=== PATIENT | male | born 1975 | race Caucasian/White ===

== ENCOUNTER 2019-04-26 07:13 | Day surgery (SDC) | payer OTHER, SELFPAY ==
[2019-04-07 15:01] VITALS: BMI 23.6
--- NOTE | 2019-04-11 10:28 | HP_ITS ---
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 Is patient in pain?: No Allergies No Known Allergies Allergy (Unverified 04/07/19 15:03) Medications omeprazole 20 mg capsule,delayed release 20 mg PO DAILY #60 cap 04/07/19 [Rx Confirmed 04/07/19] sucralfate 1 gram tablet 1 g PO QACHS #120 tab 04/07/19 [Rx Confirmed 04/07/19] PFSH Medical History (Updated 04/11/19 @ 10:26 by Spencer Bryan MD) Abdominal pain (Acute) Black tarry stools (Acute) Nausea (Acute) Weight loss (Acute) Surgical History (Updated 04/07/19 @ 15:00 by Shilpa Vigil) History of right inguinal hernia repair (Acute) History of spinal surgery (Acute) Family History (Updated 04/07/19 @ 15:01 by Shilpa Vigil) Aunt Cancer leukemia Social History (Updated 04/11/19 @ 10:28 by Spencer Bryan MD) Smoking Status: Current every day smoker alcohol intake: current alcohol intake frequency: a few times a month substance use type: marijuana HPI HPI HPI: KEN FLANAGAN, is a 43 M who presents to the office today for HPI HPI Surgical H&P: Yes HPI: KEN FLANAGAN, is a 43 M who presents to the office today for Weight loss, lower abdominal pain, epigastric pain, black tarry stools. Patient notes that for the last month or so he has had 30 pounds of weight loss. He says that he is not having a gross blood in his stool but he is having black tarry stools. He is having lower abdominal pain as well as upper abdominal pain and heartburn. The patient does smoke cigarettes and has daily caffeine intake. He also takes ibuprofen. ROS General General: Yes weight change; no appetite, fatigue, colon cancer, breast cancer or weakness HEENT HEENT: No difficulty swallowing, eye injury, eye surgery, swollen glands or hoarseness Endo Endocrine: No thyroid disease, diabetes mellitus, thyroid cancer, Hair loss, heat intolerance or cold intolerance Skin Skin: No rash or changing moles Breast Breast: No left breast lump, right breast lump, nipple discharge, breast pain, abnormal mammogram, abnormal US or breast enlargement Musc Musculoskeletal: No back problems, arthritis, rheumatoid arthritis, gout or joint pain Cardio Cardiovascular: No murmur, pacemaker, heart disease, atrial fibrillation, high blood pressure, heart attack, heart stent, palpitations, shortness of breat with exertion or chest pain Psych Psychiatric: No depression, anxiety or hearing voices Resp Respiratory: No shortness of breath, No sleep apnea, No cough, No COPD, No asthma, No emphysema, No wheezing Gastro Gastrointestinal: Yes abdominal pain, Yes nausea or vomiting, No diarrhea, No constipation, No blood in stool, No acid reflux, No hemorrhoids, No ulcers, No gallbladder problem, Yes black,tarry stools Guanaco Hematologic: No blood thinners, No blood disorders, No bleeding, No anemia, No blood clots Neuro Neurologic: No system reviewed and no additional complaints, except as docu, No as per HPI, No abnormal walking, No abnormal hearing, No abnormal movements, No abnormal speech, No behavioral changes, No burning sensations, No confusion, No seizure-like activity, No unsteadiness, No dizziness, No localized weakness, No frequent falls, No headache(s), No lack of coordination, No loss of vision, No memory loss, Yes numbness, No other visual disturbances, No radiating pain, No restless legs, No sensory deficit, No fainting, Yes tingling, No tremor(s), No weakness, No other Exam Const General: cooperative Orientation: alert, oriented x3 Chest Breast Palpation: No nipple discharge Resp Effort & Inspection: normal respiratory effort Auscultation: clear to auscultation bilaterally Cardio Rate: regular rate Rhythm: regular rhythm Heart Sounds: no murmurs GI Inspection: non-distended Palpation: soft, nontender Assessment & Plan Problems 1. Black tarry stools K92.1 2. Weight loss R63.4 3. Epigastric pain R10.13 Plan The patient is having epigastric pain as well as black tarry stools. This is likely peptic ulcer disease. He may have not been eating due to the abdominal pain. I will also perform a colonoscopy at the same time as EGD to ensure that there is no GI malignancy. I have started the patient on a PPI and Carafate. I explained endoscopy in detail to the patient. I explained the risks including but not limited to stroke or heart attack with anesthesia, perforation of the GI tract, bleeding, infection. I explained that any of these could necessitate further emergency surgery. The patient understands and all questions were answered sufficiently. The patient wishes to proceed with procedure. Spencer Bryan MD Pager: [facility] [address] [place] [address], [address] [place] [phone] Office: Orders Orders: Colonoscopy Today R63.4 EGD Today K92.1, R10.13 Medications New: sucralfate 1 g PO QACHS 120 tabs 0RF omeprazole 20 mg PO DAILY 60 caps 1RF Coding Level of Care Code Off vis,new,level 3 Diagnoses Black tarry stools K92.1 Weight loss R63.4 Epigastric pain R10.13 04/11/19 1028 <Electronically signed by Spencer chen MD> Date _ Spencer Bryan MD I have re-examined the patient. Patient notes that with PPI and Carafate he has been having less black tarry stools and he has been eating much more. He still has occasional black tarry stools. He says the bowel prep went well. I did obtain the CT scan from the outside hospital which shows a right inguinal hernia containing bowel. I discussed that the patient should have this repaired due to risk of incarceration or strangulation of the patient will address this at a later date.
[2019-04-26 07:34] VITALS: BP 129/82; PULSE 68; RESP 16; TEMP 36.8; O2SAT 97; BMI 23.3
[2019-04-26 08:50] VITALS: BP 129/82; BP 91/54; BP 93/55; PULSE 46; PULSE 56; RESP 16; TEMP 36.3; O2SAT 100; O2SAT 99
--- NOTE | 2019-04-26 08:51 | OP.EGD_ITS ---
Patient Name: Zeb Palumbo Procedure Date: 04/26/2019 8:19 AM Date of : 1975 Age: 43 Procedure: Upper GI endoscopy Indications: Melena Providers: Spencer Bryan MD Medicines: Monitored Anesthesia Care Patient Profile: This is a 43 year old male. Refer to note in patient chart for documentation of history and physical. Complications: No immediate complications. Procedure: Pre-Anesthesia Assessment: - Prior to the procedure, a History and Physical was performed, and patient medications and allergies were reviewed. The patient's tolerance of previous anesthesia was also reviewed. The risks and benefits of the procedure and the sedation options and risks were discussed with the patient. All questions were answered, and informed consent was obtained. Prior Anticoagulants: The patient has taken no previous anticoagulant or antiplatelet agents. After reviewing the risks and benefits, the patient was deemed in satisfactory condition to undergo the procedure. After obtaining informed consent, the endoscope was passed under direct vision. Throughout the procedure, the patient's blood pressure, pulse, and oxygen saturations were monitored continuously. The gastroscope was introduced through the mouth, and advanced to the third part of duodenum. The upper GI endoscopy was accomplished without difficulty. The patient tolerated the procedure well. Scope In: 8:26:36 AM Scope Out: 8:29:33 AM Total Procedure Duration Time 0 hours 2 minutes 57 seconds Findings: The esophagus was normal. The stomach was normal. The examined duodenum was normal. Impression: - Normal esophagus. - Normal stomach. - Normal examined duodenum. - No specimens collected. Recommendation: - Discharge patient to home. - Resume previous diet. - Continue present medications. Procedure Code(s): --- Professional --- 02645, Esophagogastroduodenoscopy, flexible, transoral; diagnostic, including collection of specimen(s) by brushing or washing, when performed (separate procedure) Diagnosis Code(s): --- Professional --- K92.1, Melena (includes Hematochezia) CPT copyright 2017 [employer]. All rights reserved. The codes documented in this report are preliminary and upon bullard machine operator review may be revised to meet current compliance requirements. Spencer Bryan MD 04/26/2019 8:51:09 AM This report has been signed electronically. Number of Addenda: 0 Note Initiated On: 04/26/2019 8:19 AM
--- NOTE | 2019-04-26 08:51 | OP.CCLET_ITS ---
04/26/2019 Nicky Weldon Re : Upper GI endoscopy procedure for Zeb Weldon This procedure was performed on Friday, April 26, 2019. My impressions and recommendations are as follows: Impressions : - Normal esophagus. - Normal stomach. - Normal examined duodenum. - No specimens collected. Recommendations : - Discharge patient to home. - Resume previous diet. - Continue present medications. My findings are described in the full procedure note, which is enclosed. If I can be of further assistance, please feel free to contact me at Doctor phone number(s): , Work: . Sincerely, Spencer Bryan MD 04/26/2019 8:51:09 AM This report has been signed electronically.
--- NOTE | 2019-04-26 08:53 | OP.CCLET_ITS ---
04/26/2019 Nicky Weldon Re : Colonoscopy procedure for Zeb Weldon This procedure was performed on Friday, April 26, 2019. My impressions and recommendations are as follows: Impressions : - The entire examined colon is normal on direct and retroflexion views. - No specimens collected. Recommendations : - Discharge patient to home. - Resume previous diet. - Continue present medications. - Repeat colonoscopy in 10 years for screening purposes. - Return to my office at appointment to be scheduled. My findings are described in the full procedure note, which is enclosed. If I can be of further assistance, please feel free to contact me at Doctor phone number(s): , Work: . Sincerely, Spencer Bryan MD 04/26/2019 8:53:12 AM This report has been signed electronically.
--- NOTE | 2019-04-26 08:53 | OP.COLON_ITS ---
Patient Name: Zeb Palumbo Procedure Date: 04/26/2019 8:32 AM Date of : 1975 Age: 43 Procedure: Colonoscopy Indications: Melena, Weight loss Providers: Spencer Bryan MD Medicines: Monitored Anesthesia Care Patient Profile: This is a 43 year old male. Refer to note in patient chart for documentation of history and physical. Last Colonoscopy: none. The patient's first colonoscopy is today. Complications: No immediate complications. Procedure: Pre-Anesthesia Assessment: - Prior to the procedure, a History and Physical was performed, and patient medications and allergies were reviewed. The patient's tolerance of previous anesthesia was also reviewed. The risks and benefits of the procedure and the sedation options and risks were discussed with the patient. All questions were answered, and informed consent was obtained. Prior Anticoagulants: The patient has taken no previous anticoagulant or antiplatelet agents. After reviewing the risks and benefits, the patient was deemed in satisfactory condition to undergo the procedure. After I obtained informed consent, the scope was passed under direct vision. Throughout the procedure, the patient's blood pressure, pulse, and oxygen saturations were monitored continuously. The colonoscope was introduced through the anus and advanced to the cecum, identified by appendiceal orifice and ileocecal valve. The colonoscopy was performed without difficulty. The patient tolerated the procedure well. The quality of the bowel preparation was good. Scope In: 8:32:49 AM Scope Withdrawal Time 0 hours 6 minutes 8 seconds Scope Out: 8:44:17 AM Total Procedure Duration Time 0 hours 11 minutes 28 seconds Findings: The entire examined colon appeared normal on direct and retroflexion views. Impression: - The entire examined colon is normal on direct and retroflexion views. - No specimens collected. Recommendation: - Discharge patient to home. - Resume previous diet. - Continue present medications. - Repeat colonoscopy in 10 years for screening purposes. - Return to my office at appointment to be scheduled. Procedure Code(s): --- Professional --- 14750, Colonoscopy, flexible; diagnostic, including collection of specimen(s) by brushing or washing, when performed (separate procedure) Diagnosis Code(s): --- Professional --- K92.1, Melena (includes Hematochezia) R63.4, Abnormal weight loss CPT copyright 2017 [employer]. All rights reserved. The codes documented in this report are preliminary and upon levelman review may be revised to meet current compliance requirements. Spencer Bryan MD 04/26/2019 8:53:12 AM This report has been signed electronically. Number of Addenda: 0 Note Initiated On: 04/26/2019 8:32 AM
[2019-04-26 09:01] VITALS: BP 105/71; BP 129/82; PULSE 68; RESP 16; O2SAT 100
[2019-04-26 09:05] VITALS: BP 105/69; BP 129/82; PULSE 40; RESP 16; O2SAT 100
[2019-04-26 09:10] VITALS: BP 112/77; BP 129/82; PULSE 446; RESP 16; TEMP 36.3; O2SAT 100
[2019-04-26 09:36] VITALS: BP 129/82
== END 2019-04-26 09:52 | disposition home or self-care (01) ==
LOC: EN 07:16 → AC 07:18
PROVIDERS: PCP Physician Assistant; Referring Provider Physician Assistant; Visit Provider Surgery
PROC: 0DJD8ZZ Inspection of Lower Intestinal Tract, Via Natural or Artificial Opening Endoscopic (ICD-10-PCS; CPT 45378; principal; 2019-04-26 08:25)
DX: K92.1 Melena (principal); R63.4 Abnormal weight loss; F17.210 Nicotine dependence, cigarettes, uncomplicated; F12.90 Cannabis use, unspecified, uncomplicated; Z79.899 Other long term (current) drug therapy
CPT/HCPCS: 43235; 45378; J7120; J2405

== ENCOUNTER 2021-06-27 06:31 | Day surgery (SDC) | payer OTHER, SELFPAY ==
[2021-06-27] VITALS (9 sets, daily range): BP systolic 112–156; BP diastolic 69–96; PULSE 49–86; RESP 14–18; TEMP 36.1–37; O2SAT 97–100; BMI 22.7
--- NOTE | 2021-06-27 06:52 | EKG12_ITS ---
Test Reason : PREOP Blood Pressure : / mmHG Vent. Rate : 053 BPM Atrial Rate : 053 BPM P-R Int : 124 ms QRS Dur : 090 ms QT Int : 418 ms P-R-T Axes : 087 062 071 degrees QTc Int : 392 ms Sinus bradycardia with sinus arrhythmia Septal infarct , age undetermined Abnormal ECG No previous ECGs available Confirmed by ELISHA AKERS, LUZ MARINA ([id number]), script editor FAISAL LIVINGSTON ([id number]) on 07/01/2021 2:07:34 PM Referred By: Spencer Bryan Confirmed By:NAKUL TELLO MD
--- NOTE | 2021-06-27 06:56 | PCM.HP.BLA ---
History and Physical Date of Admission: 06/27/21 Intake Vital Signs 05/17/21 09:51 Height 5 ft 11 in Weight: 164 lb BMI 22.8 BP 119/84 H Blood Pressure Location Rt brachial Position Sitting Respiration 18 Pulse 67 Pulse Source Monitor Temp 97.5 F L Temp Source Temporal Pulse Oximetry (%) 100 Oxygen Delivery Method room air Intake Visit Reasons: HERNIA Chief Complaint: Left Inguinal Hernia Chronic Disease Manager Required: No Is patient in pain?: No Allergies No Known Allergies Allergy (Verified 05/17/21 09:52) Medications NK 05/17/21 [History Confirmed 05/17/21] [facility] Medical History Abdominal pain Black tarry stools Left inguinal hernia Nausea Weight loss Surgical History History of colonoscopy (~04/2019) History of esophagogastroduodenoscopy (EGD) (~04/2019) History of right inguinal hernia repair History of spinal surgery Family History Aunt Cancer leukemia Social History (Updated 05/17/21 @ 09:50 by Shilpa Vigil) Smoking Status: Current every day smoker alcohol intake: current alcohol intake frequency: a few times a month HPI HPI HPI: KEN FLANAGAN, is a 45 M who presents to the office today for left inguinal hernia. Patient has had left inguinal hernia for years and put off repairing it due to Covid. Patient has had a right inguinal hernia repair in the past. Patient reports discomfort in the left groin with bulging. ROS General General: Yes weight change; No appetite, fatigue, colon cancer, breast cancer or weakness HEENT HEENT: No difficulty swallowing, eye injury, eye surgery, swollen glands or hoarseness Endo Endocrine: No thyroid disease, diabetes mellitus, thyroid cancer, Hair loss, heat intolerance or cold intolerance Skin Skin: No rash or changing moles Breast Breast: Yes left breast lump; No right breast lump, nipple discharge, breast pain, abnormal mammogram, abnormal US or breast enlargement Musc Musculoskeletal: No back problems, arthritis, rheumatoid arthritis, gout or joint pain Cardio Cardiovascular: No murmur, pacemaker, heart disease, atrial fibrillation, high blood pressure, heart attack, heart stent, palpitations, shortness of breat with exertion or chest pain Psych Psychiatric: No depression, anxiety or hearing voices Resp Respiratory: No shortness of breath, No sleep apnea, No cough, No COPD, No asthma, No emphysema and No wheezing Gastro Gastrointestinal: No abdominal pain, Yes nausea or vomiting, No diarrhea, No constipation, No blood in stool, Yes acid reflux, No hemorrhoids, No ulcers, No gallbladder problem and No black,tarry stools Guanaco Hematologic: No blood thinners, No blood disorders, No bleeding, No anemia and No blood clots Neuro Neurologic: No system reviewed and no additional complaints, except as documented, No as per HPI, No abnormal gait, No abnormal hearing, No abnormal movements, No abnormal speech, No behavioral changes, No burning sensations, No confusion, No convulsions, No disequilibrium, No dizziness, No localized weakness, No frequent falls, No headache(s), No lack of coordination, No loss of vision, No memory loss, Yes numbness, No other visual disturbances, No radicular pain, No restless legs, No sensory deficit, No syncope, Yes tingling, No tremor(s), No weakness and No other Exam Const General: cooperative Orientation: alert and oriented x3 HENMT Head: normal to inspection Neck Neck: normal visual inspection and full ROM Chest Chest palpation & inspection: normal inspection of the chest Resp Effort & Inspection: normal respiratory effort Auscultation: clear to auscultation bilaterally Cardio Rate: regular rate Rhythm: regular rhythm GI Inspection: non-distended Palpation: soft, hernia indirect inguinal on the left and nontender Skin General: no rashes or lesions noted Neuro General: patient alert and patient oriented x3 Extrem General: full ROM Psych Appearance: grossly normal Mental Status: mental status grossly normal Assessment and Plan Assessment and Plan (1) Left inguinal hernia: Status: Acute Plan - Dr. Spencer Bryan MD: Patient is a left inguinal hernia he would like repaired. The patient has a history of open right inguinal hernia repair in the past. I discussed robotic assisted laparoscopic inguinal hernia repair with mesh with the patient. I discussed the procedure in detail as well as the risks including but not limited to bleeding, infection, injury to bowel or bladder or underlying organs such as the spermatic cord or blood vessels. I explained mesh placement as well as possible complications. I explained the chance of chronic groin pain. We also talked about repairing the contralateral side if a hernia is present on the right. Patient would like this repaired if it is present. Patient understands all the risks and is willing to proceed. Spencer Bryan MD Pager: [facility] [address] [place] [address] [address] [place] [phone] Office: I have re-examined the patient. There are no clinical changes since date of exam.
[2021-06-27] MEDS: Lactated Ringers 1,000 ML 15 ML IV ×2 (07:06→09:00)
[2021-06-27 07:12] LABS: Hematocrit 42.7 % (40-54); Hemoglobin 14.5 g/dL (13.0-16.5); Mean Corpuscular Hgb 31.8 pg (27.0-32.0); Mean Corpuscular Volume 93.6 fL (80-94); Platelet Count 226 K/mm3 (150-450); RBC Distribution Width CV 12.2 % (11.6-14.6); RBC Distribution Width SD 42.5 fl (35.1-43.9); Red Blood Count 4.56 M/mm3 (4.6-6.2); White Blood Count 6.6 K/mm3 (4.4-11.0)
[2021-06-27] MEDS: Cefazolin 2 GM in 0.9% Normal Saline 100 ML IV (07:53)
--- NOTE | 2021-06-27 08:00 | LIP_PTH ---
PATIENT: KEN FLANAGAN Jr. LOC: [facility] U#:[id number] AGE/SX: 45/M ROOM: RE06/27/[address]: Dr. Spencer Bryan MD : 1975 BED: DIS: 06/27/2021 SPEC #: [id number] RECD: 06/27/21 10:04 STATUS: AMBER REHarish #: [id number] LUKASZ: 06/27/21 08:[address]: Spencer Bryan DEPT: SURGICAL PATHOLOGY RECD BY: Lanette Woodward ENTERED: 06/27/21 12:41 SP TYPE: LIPOMA OTHR DR: JENNY Cervantes Tissues: Soft tissues, NOS Procedures: Surgery Specimen Level III HEADER OPERATION: Lap robotic inguinal hernia PRE-OP DIAGNOSIS: Left inguinal hernia TISSUE SUBMITTED: Lipoma MICROSCOPIC DIAGNOSIS Lipoma, biopsy: Mature adipose tissue, consistent with lipoma. DAYSI:ang 06/28/2021 MICROSCOPIC DESCRIPTION Slides are reviewed. GROSS DESCRIPTION Received in fixative is one container labeled with the patient's name and designated lipoma. The specimen consists of two pieces of yellow adipose tissue measuring in aggregate 4 x 3.5 x 0.5 cm. Sections reveal yellow adipose cut surfaces without area of hemorrhage, necrosis or cystic degeneration. Concrete Engineer sections are submitted in one cassette. / SJ:rg 06/27/2021 TC:1 CPT: 72577
[2021-06-27] MEDS: Bupivacaine 0.5% PF 10 ML VIAL (09:35)
--- NOTE | 2021-06-27 09:47 | OP.PCM_ITS ---
Problems Associated Problem List Diagnoses (1) Left inguinal hernia: Report of Operation Date of Procedure: 06/27/21 Pre-Operative Diagnosis: Left inguinal hernia Post-Operative Diagnosis: Left inguinal hernia Surgery/Procedure Performed:: Robotic assisted laparoscopic left inguinal hernia repair with mesh Specimen's removed: Lipoma of left cord Description of Procedure: Patient was brought the operating room and general anesthesia was used. The abdomen was prepped and draped in usual sterile fashion. A midline incision was made superior to the umbilicus and deepened to the fascia which was elevated and a Veress needle was placed into the abdomen. A drop test was performed. The abdomen was then insufflated to 15 mmHg and the Veress needle was removed and a port was placed into the abdomen. Camera was placed in the abdomen there were no injuries from entry. Patient was placed in Trendelenburg position and under direct visualization a right lateral 8 mm port was placed as well as a left lateral 8 mm port. Robot was docked. Incision was made in the peritoneum using electrocautery scissors and then the peritoneum was dissected inferiorly until the hernia sac was encountered. It was a sliding hernia containing colon. This was reduced along with the hernia sac and the dissection was carried inferiorly. Lipoma was dissected free from the left cord and removed as well. Next a ProGrip mesh was placed in the left groin and unfolded completely covering the hernia defect. The mesh was reapproximated using a running 3 OV lock suture but during the peritoneal reapproximation there appeared to be some bleeding from possible epigastric. A [id number] 0 Vicryl suture was used to stop this bleeding and then the peritoneum was cont inued to be closed. There was a defect in the peritoneum where the hernia sac was incised and this was closed with a [id number] 3-0 Vicryl suture. There appeared to be good hemostasis by the end of the case. The robot was undocked and the ports were removed. The incisions were injected with local anesthetic and closed with interrupted 4-0 Monocryl suture. Steri-Strips and bandages were applied. Patient was awoken and taken to PACU in stable condition. Grafts/Implants Used: ProGrip mesh in the left groin Admit VTE Documentation VTE Mechan Device Prophylaxis: SCD's
--- NOTE | 2021-06-27 09:54 | EX.PCM.DISCH ---
Discharge Instructions Procedure Hernia Diet Discharge Diet: Light diet - advance as tolerated Activity Discharge Activity: May Not Drive (for 2-3 days or while taking narcotic pain meds.) and May Shower (with the bandage in place 1-2 days after surgery.) Lifting Restrictions: 20 pounds for 6 weeks. Additional Activity Instructions:: Climbing stairs is fine, walking is encouraged. Sitting in bed may be uncomfortable. Sitting up using your lateral muscles (sitting up sideways) is usually more comfortable. Do not drive, work heavy equipment of sign legal documents for 24 hours. If your hernia repair was an ingunial repair, you may have scrotal swelling, an ice pack and/or athletic support can provide more comfort. Pain medications may cause nausea, you should typically eat light foods as you take your pain medications. Pain medications may also cause constipation. If you have difficulty with this, discuss with your doctor. Dressing / Incision Call your doctor if your incision/area has: Continuous Slow Oozing, Sudden Increased Bleeding, Increased Pain/ Swelling, Increased Redness and Foul Smelling Discharge Call your doctor if you observe: Fever of 101 or Higher Suture Line Care: Avoid Pulling/Pushing and Avoid Pinching/Bending Remove Dressing in: 2 days (Remove clear bandages in 2 days, remove Steri-Strips in 7 to 10 days.) Cleanse incision/area with: Soap & Water Additional Dressing/Incision Instructions:: Use Tylenol for pain, if pain not controlled use oxycodone. Avoid ibuprofen in the immediate postoperative time period. Follow Up Care Please Follow Up With: Spencer Bryan MD When: Please call to schedule 2 week follow up appointment. [phone] Test Results: Test results from this visit will be discussed in further detail at your follow-up appointment, if applicable. Discharge Plan Admission Attending Provider: Spencer Bryan Primary Care Provider: Nicky Weldon Discharge Orders/Prescriptions Prescriptions: New oxycodone 5 mg tablet 5 - 10 mg PO Q4H PRN (Reason: pain) 5 Days Qty: 20 RF: 0 No Action NK RF: 0 Referrals / Follow Up: Nicky Weldon PA [Primary Care Provider] - Disposition Disposition (needs filled in before D/C Order can be placed): Home, Self Care
[2021-06-27] MEDS: oxyCODONE 5 MG Tablet PO (10:45)
--- NOTE | 2021-06-27 13:14 | NURSING ---
PT REFUSING ANY URINARY INTERVENTIONS AT THIS TIME, PT WANTS TO KEEP TRYING TO PEE ON HIS OWN. WILL CONTINUE TO MONITOR THE PT, WILL FOLLOW UP WITH SURGEON.
== END 2021-06-27 23:59 | disposition home or self-care (01) ==
LOC: SDC 06:32 → AC 06:33
PROVIDERS: Anesthesiology; PCP Physician Assistant; Referring Provider Surgery; Visit Provider Surgery
PROC: 0YQ64ZZ Repair Left Inguinal Region, Percutaneous Endoscopic Approach (ICD-10-PCS; CPT 49650; principal; 2021-06-27 07:40)
DX: K40.90 Unilateral inguinal hernia, without obstruction or gangrene, not specified as recurrent (principal); F17.200 Nicotine dependence, unspecified, uncomplicated; N63.10 Unspecified lump in the right breast, unspecified quadrant
CPT/HCPCS: 49650; 00840; 85027; 87811; 88304; 93005; J7120; J2405; J3490